=== PATIENT | female | born 1995 | race Caucasian/White ===

== ENCOUNTER 2020-03-22 14:47 | Emergency (ER) | payer OTHER ==
--- NOTE | 2020-03-22 16:31 | ER Document Report ---
ED Medical Screen (RME) - General Chief Complaint: Flank Pain Stated Complaint: RIGHT SIDE FLANK PAIN Time Seen by Provider: 03/22/20 16:26 Mode of Arrival: Ambulatory Information source: Patient Notes: HPI; 24-year-old female presents emergency room complaining of right lower quadrant pain for the past 2 days. States went to urgent care was told she had negative urine referred the emergency room for further evaluation. No fevers. Some nausea but no vomiting. Decreased appetite. Has not taken any medications for her symptoms. PE: Alert and oriented x3. Mild distress noted. Lungs: Clear to auscultation without rales, rhonchi, wheezes. Heart: Regular rate rhythm without murmurs, rubs, gallops. I have greeted and performed a rapid initial assessment of this patient. A comprehensive ED assessment and evaluation of the patient, analysis of test results and completion of the medical decision making process will be conducted by additional ED providers. I have specifically instructed the patient or family members with the patient to immediately return to any nursing staff should anything change in the patient's condition or with their chief complaint. - Related Data Allergies/Adverse Reactions: naproxen Allergy (Verified 03/22/20 16:22) Physical Exam - Vital signs Vitals: Temp Pulse Resp BP Pulse Ox 99.9 F 106 H 16 140/87 H 98 03/22/20 15:00 03/22/20 15:00 03/22/20 15:00 03/22/20 15:00 03/22/20 15:00 Course - Vital Signs Vital signs: Temp Pulse Resp BP Pulse Ox 99.9 F 106 H 16 140/87 H 98 03/22/20 15:00 03/22/20 15:00 03/22/20 15:00 03/22/20 15:00 03/22/20 15:00
[2020-03-22 16:58] LABS: ABSOLUTE BASOPHILS # (AUTO) 0.1 10^3/uL (0.0-0.2); ABSOLUTE LYMPHOCYTES (AUTO) 1.6 10^3/uL (0.5-4.7); ABSOLUTE MONOCYTES (AUTO) 0.9 10^3/uL (0.1-1.4); ABSOLUTE NEUT (AUTO) 9.6 10^3/uL (1.7-8.2); BASOPHILS % (AUTO) 0.4 % (0-2); EOSINOPHILS % (AUTO) 0.3 % (0-6); HEMOGLOBIN 15.5 g/dL (12.0-15.5); LYMPHOCYTES % (AUTO) 13.3 % (13-45); MEAN CORPUSCULAR HEMOGLOBIN 29.7 pg (27.0-33.4); MEAN CORPUSCULAR HGB CONC 34.4 g/dL (32.0-36.0); MEAN CORPUSCULAR VOLUME 86 fl (80-97); MONOCYTES % (AUTO) 7.2 % (3-13); PLATELET COUNT 336 10^3/uL (150-450); RED BLOOD COUNT 5.21 10^6/uL (3.72-5.28); RED CELL DISTRIBUTION WIDTH 12.7 % (11.5-14.0); SEGMENTED NEUTROPHILS % (AUTO) 78.8 % (42-78); TOTAL CELLS COUNTED % (AUTO) 100 %; WHITE BLOOD COUNT 12.3 10^3/uL (4.0-10.5)
[2020-03-22 17:08] LABS: APPEARANCE,URINE SLIGHTLY-CLOUDY; BILIRUBIN,URINE NEGATIVE (NEGATIVE); COLOR,URINE YELLOW; GLUCOSE, URINE NEGATIVE (NEGATIVE); KETONES,URINE 20 mg/dL (NEGATIVE); LEUKOCYTE ESTERASE,URINE NEGATIVE (NEGATIVE); NITRITE,URINE NEGATIVE (NEGATIVE); PROTEIN,URINE 30 mg/dL (NEGATIVE); URINE SPECIFIC GRAVITY 1.019; UROBILINOGEN,URINE NEGATIVE mg/dL (<2.0)
[2020-03-22 17:31] LABS: ALBUMIN 4.9 g/dL (3.5-5.0); ALKALINE PHOSPHATASE 99 U/L (38-126); ANION GAP 12 (5-19); ASPARTATE AMINO TRANSFERASE 28 U/L (14-36); BILIRUBIN,TOTAL 0.6 mg/dL (0.2-1.3); BLOOD UREA NITROGEN 6 mg/dL (7-20); CALCIUM 9.8 mg/dL (8.4-10.2); CARBON DIOXIDE 25 mmol/L (22-30); CHLORIDE 102 mmol/L (98-107); GLUCOSE 98 mg/dL (75-110); POTASSIUM 4.3 mmol/L (3.6-5.0); TOTAL PROTEIN 8.7 g/dL (6.3-8.2)
--- NOTE | 2020-03-22 20:38 | RADIOLOGY REPORT (SQ) ---
EXAM DESCRIPTION: CT ABD/PELVIS WITH IV ORAL RadLex: CT ABDOMEN PELVIS WITH IV CONTRAST CLINICAL HISTORY: 24 years Female; rlq pain; TECHNIQUE: CT of the abdomen and pelvis using intravenous contrast. All CT scans at this facility use dose modulation, iterative reconstruction, and/or weight based dosing when appropriate to reduce radiation dose to as low as reasonably achievable. COMPARISON: None. FINDINGS: Abdomen: Stomach: No significant distention or surrounding edema. Liver:No focal lesions. No intrahepatic ductal distention. Gallbladder:Nondistended Pancreas:Within normal limits Spleen:Within normal limits Right kidney:No hydronephrosis. No focal lesion. Left kidney:No hydronephrosis. No focal lesion. Adrenal glands:Within normal limits Vascular structures:Within normal limits Pelvis: Small bowel:No significant distention. Appendix: Normal, contrast-filled. Colon:No distention or acute pericolonic edema. Oral contrast is seen from the stomach to the rectum. No free intraperitoneal fluid or air. Bones: No acute bone findings. Bladder: Unremarkable. There is mild right adnexal edema and enlargement. An intermediate density structure in the right adnexa measures 2.7 x 2.2 x 2.3 cm, with borderline marginal enhancement. This is inadequately characterized. Uterus and left ovary are unremarkable. IMPRESSION: 1. Right adnexal enlargement with mild edema and an indeterminate 2.7 cm structure. This is likely a hemorrhagic cyst, although pelvic ultrasound is recommended, to exclude ovarian torsion.
--- NOTE | 2020-03-22 21:29 | ER Document Report ---
ED General - General Chief Complaint: Lower Abdominal Pain Stated Complaint: RIGHT SIDE FLANK PAIN Time Seen by Provider: 03/22/20 16:26 Mode of Arrival: Ambulatory - HPI Notes: Patient is a 24-year-old female presents emergency department for evaluation of pain in her right lower quadrant. She states that on Friday she developed periumbilical pain with radiation into her right lower quadrant. Remained stable for the next several days. She states she is had a diminished appetite. She did have some nausea. Her pain got worse today, so she presents to the ER for further evaluation. No vaginal discharge. No dysuria, hematuria, urinary frequency. She states that she has had some loose bowel movements, but denies jovita diarrhea. She states that movement makes her pain worse, nothing seems to make it better. - Related Data Allergies/Adverse Reactions: naproxen Allergy (Verified 03/22/20 16:22) Home Medications: Oral contraceptives Past Medical History - General Information source: Patient - Social History Smoking Status: Never Smoker Frequency of alcohol use: Occasional Drug Abuse: None Family History: Reviewed & Not Pertinent Patient has homicidal ideation: No Pulmonary Medical History: Reports: Hx Asthma Review of Systems - Review of Systems Constitutional: No symptoms reported EENT: No symptoms reported Cardiovascular: No symptoms reported Respiratory: No symptoms reported Gastrointestinal: See HPI Genitourinary: No symptoms reported Musculoskeletal: No symptoms reported Skin: No symptoms reported Neurological/Psychological: No symptoms reported Physical Exam - Vital signs Vitals: Temp Pulse Resp BP Pulse Ox 99.9 F 106 H 16 140/87 H 98 03/22/20 15:00 03/22/20 15:00 03/22/20 15:00 03/22/20 15:00 03/22/20 15:00 - Notes Notes: Vital signs reviewed, please refer to chart. Head is normocephalic, atraumatic. Pupils equal round, reactive to light. Neck is supple without meningismus. Heart is regular rate and rhythm. Lungs are clear to auscultation bilaterally. Abdomen is soft, moderately tender in the right lower quadrant with some voluntary guarding, no rebound, normoactive bowel sounds throughout. Negative heeltap. Extremities without cyanosis, clubbing. Posterior calves are nontender. Peripheral pulses are equal. Skin is warm and dry. Patient is awake, alert, neurological exam is nonfocal. Course - Re-evaluation Re-evalutation: 03/22/20 21:28 Patient presents to the emergency department for evaluation. She laboratory investigations and imaging is ordered through triage. The patient states that at rest she really does not have any pain. Her laboratory investigations revealed a mild leukocytosis. CT scan of the abdomen pelvis definitively identified the appendix, but there was concern about the adnexa. Patient continues to have some very mild voluntary guarding on exam, but I cannot rule out torsion based on the CT scan appearance. Transvaginal ultrasound with Doppler is ordered. Patient is currently stable, remains n.p.o. We will continue to monitor. 03/23/20 00:54 Patient remained stable, serial abdominal exams are tender but nonsurgical. Findings were explained and the need for follow-up ultrasound was explained as well. I will give her referral to our on-call [facility]. Otherwise she is to take ibuprofen as needed for pain, return to the ER with worsening or new concerning symptoms of any sort. - Vital Signs Vital signs: Temp Pulse Resp BP Pulse Ox 99.9 F 106 H 16 140/87 H 98 03/22/20 15:00 03/22/20 15:00 03/22/20 15:00 03/22/20 15:00 03/22/20 15:00 - Laboratory Result Diagrams: 03/22/20 16:40 03/22/20 16:40 Laboratory results interpreted by me: 03/22/20 03/22/20 03/22/20 16:40 16:40 16:40 WBC 12.3 H Absolute Neuts (auto) 9.6 H Seg Neutrophils % 78.8 H BUN 6 L Total Protein 8.7 H Urine Protein 30 H Urine Ketones 20 H - Diagnostic Test Radiology reviewed: Reports reviewed Radiology results interpreted by me: 03/23/20 00:53 Abdomen/Pelvis CT 03/22/20 00:00 IMPRESSION: 1. Right adnexal enlargement with mild edema and an indeterminate 2.7 cm structure. This is likely a hemorrhagic cyst, although pelvic ultrasound is recommended, to exclude ovarian torsion. Transvaginal US 03/22/20 21:20 IMPRESSION: No evidence of torsion 3.5 cm complex cystic lesion in the right ovary for which follow-up in 6-12 weeks with ultrasound is recommended Discharge - Discharge Clinical Impression: Complex cyst of right ovary Condition: Stable Disposition: HOME, SELF-CARE Instructions: Ovarian Cyst ([facility]) Additional Instructions: Your evaluation today revealed a 3.5 cm complex ovarian cyst. It is recommended that you have another ultrasound in 6 to 12 weeks to follow this up. Please follow-up with [facility]. You can take ibuprofen as needed for pain. If you de velop increased pain, or any other new or concerning symptoms, please return immediately to the emergency department for evaluation. Referrals: MARVA RICH MD [ACTIVE STAFF] - Follow up as needed
--- NOTE | 2020-03-23 00:23 | RADIOLOGY REPORT (SQ) ---
EXAM DESCRIPTION: US PELVIS TRANSVAGINAL COMPLETED DATE/TME: 03/22/2020 21:20 CLINICAL HISTORY: 24 years Female right adnexal mass, eval for torsion COMPARISON: None. TECHNIQUE: Transvaginal duplex imaging performed to evaluate the pelvis. FINDINGS: The uterus measures 7.1 x 3 x 4.4 cm. Services closed measured 2.8 cm. In the medial stripe 5 mm. Right ovary measures 4.4 x 4.4 x 2.9 cm. There is an echogenic area within the right ovary measuring 3.6 x 2.5 x 3.1 cm suspect complex cyst. Recommend follow-up in one to two menstrual cycles for further evaluation. No evidence of torsion. Left ovary measures 1.7 x 2 x 1.6 cm. Normal blood flow. IMPRESSION: No evidence of torsion 3.5 cm complex cystic lesion in the right ovary for which follow-up in 6-12 weeks with ultrasound is recommended
[2020-03-23 01:13] VITALS: BP 119/79
== END 2020-03-23 01:21 | disposition home or self-care (01) ==
LOC: ER 14:47
DX: N83.201 Unspecified ovarian cyst, right side (principal); R10.31 Right lower quadrant pain; R10.813 Right lower quadrant abdominal tenderness; R63.0 Anorexia; R11.0 Nausea; R19.4 Change in bowel habit; J45.909 Unspecified asthma, uncomplicated; Z79.3 Long term (current) use of hormonal contraceptives
CPT/HCPCS: 36415; 74177; 76830; 80053; 81001; 84703; 85025; 93976; 99285